=== PATIENT | female | born 1945 | race Caucasian/White ===

== ENCOUNTER → 2018-05-17 | Outpatient (CLI) | payer MEDICARE ==
--- NOTE | 2018-05-18 08:30 | CT ---
EXAMINATION TYPE: CT chest w con DATE OF EXAM: 05/17/2018 COMPARISON: Outside CT thorax dated 03/05/2018 HISTORY: Follow up scan from Prior study per patient. CT DLP: 480 mGycm. Automated Exposure Control for Dose Reduction was Utilized. TECHNIQUE: CT scan of the thorax is performed following with IV Contrast, patient injected with 70 m L of Isovue 300. FINDINGS: LUNGS: There is near complete resolution of the right peripheral tree-in-bud opacities as seen on the prior exam. Additionally the consolidation within the left lower lobe has become more linear in morp hology favored to represent pleural parenchymal scarring. Continued follow-up could be performed to e nsure no interval growth. No new consolidation. No new pleural effusion or pneumothorax seen. The tr acheobronchial tree is patent. MEDIASTINUM: There are no greater than 1 cm hilar or mediastinal lymph nodes. No pericardial effusi on is seen. OTHER: Hepatic parenchyma is diffusely hypoattenuated in comparison to that of the spleen, most commonly see n in hepatic steatosis. This finding limits evaluation for hepatic masses. No gross evidence of hepat ic mass is seen. No intrahepatic biliary ductal dilatation. Gallbladder is contracted. Multiple renal hypoattenuating lesions are seen, some of which are cystic and some of which are too small to accura tely characterize. The largest seen measures up to 5.3 cm emanating from the left upper pole. Small h iatal hernia is present. Mild multilevel degenerative changes of the spine are noted. IMPRESSION: 1. Near complete resolution the previously seen right lower lobe tree-in-bud opacity, likely inflamma tory or infectious on the prior exam. 2. Evolution of the left basilar opacity, now more linear favored to represent pleural parenchymal sc arring although follow-up in 6 months could again be performed to ensure no interval growth. 3. Incidentally noted hepatic steatosis, renal cysts, small hiatal hernia, and other renal lesions th at are too small to accurately characterize.
== END | disposition home or self-care (01) ==
LOC: RADCTMAIN 16:33
PROVIDERS: ATTEND Family Medicine
DX: J18.1 Lobar pneumonia, unspecified organism (principal)
CPT/HCPCS: 82565; 84520; 71260; 36415; Q9967